=== PATIENT | female | born 1945 | race Caucasian/White ===

== ENCOUNTER 2020-01-27 12:09 | Inpatient (IN) | payer MEDICAID, SELFPAY ==
[~2020-01-27] VITALS: Ht 152.4 cm; Wt 43.1 kg
[2020-01-27 12:46] VITALS: BP_SYST 132
[2020-01-27 12:48] LABS: BASOPHILS % (AUTO) 0.4 % (0.0-2.0); EOSINOPHILS % (AUTO) 0.3 % (0.0-4.0); HEMATOCRIT 38.6 % (36-48); HEMOGLOBIN 12.1 g/dL (12.0-16.0); LYMPHOCYTES # (AUTO) 1.3 K/uL (1.0-5.5); LYMPHOCYTES % (AUTO) 20.9 % (20.5-51.5); MEAN CORPUSCULAR HEMOGLOBIN 23 pg (27-31); MEAN CORPUSCULAR HGB CONC 31 % (32-36); MEAN CORPUSCULAR VOLUME 75 fL (79.0-98.0); MONOCYTES # (AUTO) 0.4 K/uL (0.0-1.0); MONOCYTES % (AUTO) 6.9 % (1.7-9.3); NEUTROPHILS # (AUTO) 4.6 K/uL (1.8-7.7); NEUTROPHILS % (AUTO) 71.5 % (40.0-70.0); PLATELET COUNT (AUTO) 280 K/uL (130-430); RED BLOOD CELL COUNT(AUTO) 5.18 MIL/uL (4.2-6.2); RED CELL DISTRIBUTION WIDTH 21.2 % (9.0-15.0); WHITE BLOOD COUNT (AUTO) 6.4 K/uL (4.8-10.8)
[2020-01-27 13:05] LABS: ANION GAP 12 (5-15); CALCIUM 8.9 mg/dL (8.4-11.0); CHLORIDE 106 mmol/L (98-107); CREATININE 0.79 mg/dL (0.55-1.30); GLUCOSE 112 mg/dL (70-99); POTASSIUM 3.7 mmol/L (3.5-5.1); SODIUM SERUM 143 mmol/L (136-145); UREA NITROGEN, BLOOD 19 mg/dL (8-21)
[2020-01-27 13:10] LABS: ALANINE AMINOTRANSFERASE 21 U/L (12-78); ALBUMIN 3.4 g/dL (3.4-4.8); ASPARTATE AMINOTRANSFERASE 9 U/L (10-37); TOTAL BILIRUBIN 0.5 mg/dL (0.0-1.0)
[2020-01-27] MEDS ORDERED: ASPIRIN 325 MG TABLET PO ONE (14:45)
[2020-01-27] MEDS ORDERED: POTASSIUM CHLORIDE 20 MEQ TAB.PRT.SR PO PRN (15:00)
[2020-01-27] MEDS ORDERED: ZOLPIDEM TARTRATE 5 MG TABLET PO PRN (15:00)
[2020-01-27] MEDS ORDERED: ACETAMINOPHEN 325 MG TABLET PO PRN (15:00)
[2020-01-27] MEDS ORDERED: MAGNESIUM SULFATE 50 ML IV PRN (15:00)
[2020-01-27] MEDS ORDERED: LORazepam 2 MG/ML VIAL IVP PRN (15:00)
[2020-01-27] MEDS ORDERED: DOCUSATE SODIUM 100 MG CAPSULE PO PRN (15:00)
[2020-01-27] MEDS ORDERED: ONDANSETRON HCL 4 MG/2 ML VIAL IVP PRN (15:00)
[2020-01-27 19:20] VITALS: BP_SYST 131
[2020-01-27] MEDS: HEPARIN SODIUM,PORCINE 5,000 UNITS/ML VIAL SUBCUT SCH (21:00)
[2020-01-28 00:09] VITALS: BP_SYST 121
[2020-01-28 06:47] LABS: BASOPHILS % (AUTO) 0.6 % (0.0-2.0); EOSINOPHILS # (AUTO) 0.1 K/uL (0.0-0.4); EOSINOPHILS % (AUTO) 0.7 % (0.0-4.0); HEMATOCRIT 36.8 % (36-48); HEMOGLOBIN 11.4 g/dL (12.0-16.0); LYMPHOCYTES % (AUTO) 27.3 % (20.5-51.5); MEAN CORPUSCULAR HEMOGLOBIN 23 pg (27-31); MEAN CORPUSCULAR HGB CONC 31 % (32-36); MEAN CORPUSCULAR VOLUME 75 fL (79.0-98.0); MONOCYTES # (AUTO) 0.5 K/uL (0.0-1.0); MONOCYTES % (AUTO) 6.7 % (1.7-9.3); NEUTROPHILS # (AUTO) 4.8 K/uL (1.8-7.7); NEUTROPHILS % (AUTO) 64.7 % (40.0-70.0); PLATELET COUNT (AUTO) 264 K/uL (130-430); RED BLOOD CELL COUNT(AUTO) 4.92 MIL/uL (4.2-6.2); RED CELL DISTRIBUTION WIDTH 21.1 % (9.0-15.0); WHITE BLOOD COUNT (AUTO) 7.4 K/uL (4.8-10.8)
[2020-01-28 07:08] LABS: ANION GAP 9 (5-15); CALCIUM 8.7 mg/dL (8.4-11.0); CHLORIDE 105 mmol/L (98-107); CREATININE 0.61 mg/dL (0.55-1.30); GLUCOSE 83 mg/dL (70-99); POTASSIUM 3.4 mmol/L (3.5-5.1); SODIUM SERUM 140 mmol/L (136-145); UREA NITROGEN, BLOOD 19 mg/dL (8-21)
[2020-01-28] MEDS ORDERED: MUPIROCIN 2% TOPICAL OINTMENT 22 GM NS PRN (08:00)
[2020-01-28] MEDS: HEPARIN SODIUM,PORCINE 5,000 UNITS/ML VIAL SUBCUT SCH (09:00)
[2020-01-28 09:10] VITALS: BP_SYST 144
[2020-01-28 09:27] VITALS: BP_SYST 144
[2020-01-28 12:39] VITALS: BP_SYST 128
== END 2020-01-28 16:10 | disposition home or self-care (01) | DRG 204 ==
LOC: SED 12:09 → STU 15:03
PROVIDERS: ADMIT General Practice; ATTEND General Practice
DX: R55 Syncope and collapse (principal); G90.8 Other disorders of autonomic nervous system; Z20.828 Contact with and (suspected) exposure to other viral communicable diseases; S20.319A Abrasion of unspecified front wall of thorax, initial encounter; E05.90 Thyrotoxicosis, unspecified without thyrotoxic crisis or storm; W18.30XA Fall on same level, unspecified, initial encounter; Y93.89 Activity, other specified; Y92.89 Other specified places as the place of occurrence of the external cause; Y99.8 Other external cause status; Z95.5 Presence of coronary angioplasty implant and graft
CPT/HCPCS: 36415; 70450-TC; 71045; 76376; 80048; 80053; 83036; 83735-TC; 84439; 84443-TC; 84484; 85025; 85610-TC; 85730-TC; 93005; 99285; G0378; J1644

== ENCOUNTER 2020-03-02 21:33 | Emergency (ER) | payer MEDICAID, SELFPAY ==
[~2020-03-02] VITALS: Ht 152.4 cm; Wt 43.1 kg
[2020-03-02 21:35] VITALS: BP_SYST 141
--- NOTE | 2020-03-02 21:35 | NUR ---
Patient brought in ALS for witnessed near syncopal episode from home. Medics report patient got up from dinner table to us the bathroom, witnessed patient fall forward. Denies any loss of consciousness. Denies any KO. Complains of neck pain, arrived in c-collar. History of HTN, Dementia, Cardiac stent. Patient triaged. VSS and patient appears in no acute distress at this time. Accompanied by BLS , awaiting available bed, and MD notified of need for MSE.
--- NOTE | 2020-03-02 22:11 | NUR ---
Patient to ER hallway 3 for evaluation. Side rails up. Report given to CHAU Ulloa
--- NOTE | 2020-03-02 22:30 | NUR ---
pt BIB ALS a&o x3 for witnessed near syncopal episode at home, arrived in c-collar. pt c/o of neck pain. pt denies LOC or KO. per medics, pt stood up from dinner table to go to the bathroom, and patient fell forward. pt reports recent episode for syncopal episode.
--- NOTE | 2020-03-02 22:45 | NUR ---
ER Dr. Bragg at bedside examining patient.
--- NOTE | 2020-03-02 22:57 | NUR ---
radiology at bedside for xray.
--- NOTE | 2020-03-02 23:14 | NUR ---
patient asked to give urine sample, patient states she does not have to urinate at the moment. will be willing to try in a few.
--- NOTE | 2020-03-02 23:17 | NUR ---
lab at bedside drawing blood.
--- NOTE | 2020-03-02 23:22 | NUR ---
patient taken to radiology by tech.
[2020-03-02 23:29] LABS: BASOPHILS # (AUTO) 0.1 K/uL (0.0-0.2); BASOPHILS % (AUTO) 0.6 % (0.0-2.0); EOSINOPHILS % (AUTO) 0.3 % (0.0-4.0); HEMATOCRIT 40.3 % (36-48); HEMOGLOBIN 12.6 g/dL (12.0-16.0); LYMPHOCYTES # (AUTO) 1.6 K/uL (1.0-5.5); MEAN CORPUSCULAR HEMOGLOBIN 24 pg (27-31); MEAN CORPUSCULAR HGB CONC 31 % (32-36); MEAN CORPUSCULAR VOLUME 75 fL (79.0-98.0); MONOCYTES # (AUTO) 0.5 K/uL (0.0-1.0); MONOCYTES % (AUTO) 5.1 % (1.7-9.3); NEUTROPHILS # (AUTO) 7.4 K/uL (1.8-7.7); PLATELET COUNT (AUTO) 271 K/uL (130-430); RED BLOOD CELL COUNT(AUTO) 5.37 MIL/uL (4.2-6.2); RED CELL DISTRIBUTION WIDTH 19.4 % (9.0-15.0); WHITE BLOOD COUNT (AUTO) 9.6 K/uL (4.8-10.8)
--- NOTE | 2020-03-02 23:38 | NUR ---
patient returned from radiology in stable condition.
[2020-03-02 23:40] LABS: ANION GAP 9 (5-15); CALCIUM 9.1 mg/dL (8.4-11.0); CHLORIDE 105 mmol/L (98-107); CREATININE 0.95 mg/dL (0.55-1.30); GLUCOSE 154 mg/dL (70-99); POTASSIUM 3.8 mmol/L (3.5-5.1); SODIUM SERUM 140 mmol/L (136-145); UREA NITROGEN, BLOOD 24 mg/dL (8-21)
[2020-03-02 23:41] LABS: INR 1.1 (0.8-1.2); PROTHROMBIN TIME 11.4 SECS (9.5-12.5)
[2020-03-02 23:48] LABS: ALANINE AMINOTRANSFERASE 36 U/L (12-78); ALBUMIN 3.6 g/dL (3.4-4.8); ASPARTATE AMINOTRANSFERASE 18 U/L (10-37); TOTAL BILIRUBIN 0.5 mg/dL (0.0-1.0)
--- NOTE | 2020-03-03 00:03 | NUR ---
ER Dr. Bragg at bedside examining patient.
--- NOTE | 2020-03-03 00:07 | NUR ---
patient has approx a 2cm laceration to right parietal skull. bleeding controlled.
--- NOTE | 2020-03-03 00:14 | NUR ---
LACERATION CLEANED BY ER TECHS WITH NORMAL SALNIE AND IODINE PER MD REQUEST.
--- NOTE | 2020-03-03 00:26 | NUR ---
Patient transported to radiology, accompanied by tech.
--- NOTE | 2020-03-03 00:38 | NUR ---
patient returned from radiology in stable condition.
[2020-03-03] MEDS: DIPH-TET-PERTUS Vaccine 0.5 ML VIAL (ADACEL) I.M. ONE (00:57)
--- NOTE | 2020-03-03 01:12 | NUR ---
PATIENT REFUSING TO GIVE URINE AT THIS TIME. AWARE.
[2020-03-03] MEDS: LIDOCAINE 1% 10 MG/ML, 20 ML MDV INJ ONE (02:26)
--- NOTE | 2020-03-03 02:30 | NUR ---
Patient has a 2 cm laceration to RIGHT PARIETAL SKULL. Dr. DEL REAL applied 6 ERIKA using sterile technique. Edges well approximated. Site cleansed with NORMAL SALINE AND IODINE. Dressing of NONADHERENT GAUZE applied to site. No bleeding noted. Pt tolerated well.
--- NOTE | 2020-03-03 02:36 | NUR ---
DAUGHTER CALLED JOSE M FRANCO [phone] TO CERTIFIED MEDICAL DOSIMETRIST PATIENT FOR DISCHARGE
--- NOTE | 2020-03-03 03:00 | NUR ---
Patient ambulated with steady gait. notified
[2020-03-03 03:17] VITALS: BP_SYST 128
--- NOTE | 2020-03-03 03:17 | NUR ---
Patient and daughter given written and verbal discharge instructions and verbalizes understanding. ER MD discussed with patient the results and treatment provided. Patient in stable condition. ID arm band removed. No Rx given. Patient educated on pain management and to follow up with PMD. Pain Scale 0/10 Opportunity for questions provided and answered.
== END 2020-03-03 03:17 | disposition home or self-care (01) ==
LOC: SED 21:33
DX: R55 Syncope and collapse (principal); F10.239 Alcohol dependence with withdrawal, unspecified
CPT/HCPCS: 12002; 36415; 70450; 71045; 72125; 76376 ×2; 80053; 82550; 84484; 85025; 85610; 85730; 90471; 90715; 93005; 99285; G0482